=== PATIENT | female | born 1980 | race Caucasian/White ===

== ENCOUNTER 2017-12-11 15:59 | Emergency (ER) | payer MEDICAID ==
--- NOTE | 2017-12-11 16:23 | EDM.PDOC ---
ED HPI GENERAL MEDICAL PROBLEM - General Chief Complaint: ENT Problem Stated Complaint: RIGHT EARACHE Time Seen by Provider: 12/11/17 16:19 Source of Information: Reports: Patient History Limitations: Reports: No Limitations - History of Present Illness Onset: Sudden Duration: Day(s): (2) Quality: Reports: Stabbing Severity: Severe Improves with: Reports: None Worsens with: Reports: None Right Ear Pain Score (Numeric/FACES): 10 - Related Data Allergies Allergy/AdvReac Type Severity Reaction Status Date / Time No Known Allergies Allergy Verified 12/11/17 16:14 Home Meds: Home Meds Amoxicillin/Potassium Clav [Augmentin 875-125 Tablet] 1 each PO BID #14 tablet 12/11/17 [Rx] Hydrocort/Neomycin/Polymyxin B [Eqdeexim-Kpemqnkdj-IG Otic Susp] 10 ml .XX Q6HRRT #1 bottle 12/11/17 [Rx] Past Medical History - Past Health History Medical/Surgical History: Denies Medical/Surgical History - Infectious Disease History Infectious Disease History: Reports: Chicken Pox Social & Family History - Family History Family Medical History: Noncontributory - Tobacco Use Smoking Status *Q: Current Every Day Smoker Years of Tobacco use: 7 Packs/Tins Daily: 0.5 - Recreational Drug Use Recreational Drug Use: No ED ROS ENT - Review of Systems Review Of Systems: ROS reveals no pertinent complaints other than HPI. ED EXAM, ENT - Physical Exam Exam: See Below (see dictation) Text/Narrative:: HISTORY AND PHYSICAL: []36-year-old presenting with right ear pain for the last 2 days History of Present Illness: []Denies cough cold fever chest pain to the right ear Review of Systems: As per history of present illness and below otherwise all systems reviewed and negative. Past medical history: As per history of present illness and as reviewed below otherwise noncontributory. Surgical history: As per history of present illness and as reviewed below otherwise noncontributory. Social history: No reported history of drug or alcohol abuse. Family history: As per history of present illness and as reviewed below otherwise noncontributory. Physical exam: Alert and oriented female who is crying due to pain. She speaking in full sentences without any shortness of breath HEENT: Atraumatic, normocehpalic, pupils reactive, negative for conjunctival pallor or scleral icterus, mucous membranes moist, throat red, neck supple, nontender, trachea midline. Right tympanic membrane is erythematous that is white and red in color bubbly looking. Quite wet. Lungs: Clear to auscultation, breath sounds equal bilaterally, chest non tender. Heart: S1S2, regular, negative for clicks, rubs, or JVD. Abdomen: Soft, nondistended, nontender. Negative for masses or hepatossplenmegaly. Negative for costovertebral tenderness. Pelvis: Stable nontender. Genitourinary: Deferred. Rectal: Deferred Extremities: Atraumatic, negative for cords or calf pain. Neurovascular unremarkable. Neuro: Awake, alert, oriented. Cranial nerves II through XII unremarkable. Cerebellum unremarkable. Motor and sensory unremarkable throughout. Exam nonfocal. Diagnostics: [] Therapeutics: [] Impression: [Right otitis media] Plan: []Discharged to home Cortisporin Otic drops Augmentin Definitive disposition and diagnosis as appropriate pending reevaluation and review of above. Course - Vital Signs Last Recorded V/S: Last Vital Signs Temp 36.4 C 12/11/17 16:11 Pulse 111 H 12/11/17 16:11 Resp 18 12/11/17 16:11 BP 145/80 H 12/11/17 16:11 Pulse Ox 94 L 12/11/17 16:11 Departure - Departure Time of Disposition: 16:21 Disposition: Home, Self-Care 01 Condition: Good Clinical Impression: Otitis media Qualifiers: Otitis media type: unspecified Chronicity: acute Qualified Code(s): H66.90 - Otitis media, unspecified, unspecified ear - Discharge Information Prescriptions: Amoxicillin/Potassium Clav [Augmentin 875-125 Tablet] 1 each PO BID #14 tablet Hydrocort/Neomycin/Polymyxin B [Vppnbojj-Mvkonzppd-XI Otic Susp] 10 ml .XX Q6HRRT #1 bottle Referrals: PCP,None [Primary Care Provider] -
== END 2017-12-11 16:35 | disposition home or self-care (01) ==
LOC: MW.ED 15:59
DX: H66.91 Otitis media, unspecified, right ear (principal); F17.210 Nicotine dependence, cigarettes, uncomplicated
CPT/HCPCS: 99282

== ENCOUNTER 2018-03-05 17:48 | Emergency (ER) | payer MEDICAID ==
[2018-03-05] MEDS ORDERED: Carbamide Peroxide 6.5% Otic Soln 15 ML Bottle EARRT ONE (18:37)
--- NOTE | 2018-03-05 18:45 | EDM.PDOC ---
ED HPI GENERAL MEDICAL PROBLEM - General Chief Complaint: ENT Problem Stated Complaint: PAIN RT EAR Time Seen by Provider: 03/05/18 18:21 Source of Information: Reports: Patient History Limitations: Reports: No Limitations - History of Present Illness INITIAL COMMENTS - FREE TEXT/NARRATIVE: HISTORY AND PHYSICAL: History of present illness: Patient is a 37 year old female who presents to the emergency room today with complaints of pain and fullness to the right ear. She was seen in our emergency room approximately one month ago and given antibiotics for an ear infection. She states since that time she has had discomfort intermittently and "feels like something in there". Any fever, chills, chest pain, shortness of breath or cough. Denies any abdominal pain, nausea, vomiting, diarrhea or constipation. Review of systems: As per history of present illness and below otherwise all systems reviewed and negative. Past medical history: As per history of present illness and as reviewed below otherwise noncontributory. Surgical history: As per history of present illness and as reviewed below otherwise noncontributory. Social history: No reported history of drug or alcohol abuse. Family history: As per history of present illness and as reviewed below otherwise noncontributory. Physical exam: General: Well developed and well-nourished 37 year old female. Alert and oriented. Nontoxic appearing and in no acute distress. HEENT: Atraumatic, normocephalic, pupils equal and reactive bilaterally, negative for conjunctival pallor or scleral icterus, mucous membranes moist, throat clear, neck supple, nontender, trachea midline. Unable to visualize the right tympanic membrane due to cerumen, left TM is normal. No bulging. No drooling or trismus noted. No meningeal signs Lungs: Clear to auscultation, breath sounds equal bilaterally, chest nontender. Heart: S1S2, regular rate and rhythm without overt murmur Abdomen: Soft, nondistended, nontender. Negative for masses. Negative for costovertebral tenderness. Pelvis: Stable nontender. Genitourinary: Deferred. Rectal: Deferred. Skin: Intact, warm, dry. No lesions or rashes noted. Extremities: Atraumatic, moves all without pain or difficulty. Neurovascular unremarkable. Neuro: Awake, alert, oriented. Cranial nerves II through XII unremarkable. Cerebellum unremarkable. Motor and sensory unremarkable throughout. Exam nonfocal. Notes: Able to visualize the right and panic membrane due to cerumen impaction. Debrox otic solution and ear irrigation was ordered. Debrox was applied by nursing staff. They let this medication to sit for approximately 10-15 minutes. Upon returning to the room nursing staff states that the patient left AMA. Attempt to locate this patient, unsuccessful. Diagnostics: [] Therapeutics: Debrox, ear irrigation Impression: Cerumen impaction, right Plan: Left prior to being discharged Definitive disposition and diagnosis as appropriate pending reevaluation and review of above. Duration: Week(s): Location: Reports: Head Right Ear Pain Score (Numeric/FACES): 6 - Related Data Allergies Allergy/AdvReac Type Severity Reaction Status Date / Time No Known Allergies Allergy Verified 03/05/18 18:11 Home Meds: Home Meds . [No Known Home Meds] 03/05/18 [History] Past Medical History - Past Health History Medical/Surgical History: Denies Medical/Surgical History - Infectious Disease History Infectious Disease History: Reports: Chicken Pox Social & Family History - Family History Family Medical History: Noncontributory - Tobacco Use Smoking Status *Q: Current Every Day Smoker Years of Tobacco use: 12 Packs/Tins Daily: 0.5 - Caffeine Use Caffeine Use: Reports: Other - Recreational Drug Use Recreational Drug Use: No ED ROS ENT - Review of Systems Review Of Systems: ROS reveals no pertinent complaints other than HPI. ED EXAM, ENT - Physical Exam Exam: See Below (See dictation) Course - Vital Signs Last Recorded V/S: Last Vital Signs Temp 97.6 F 03/05/18 18:12 Pulse 104 H 03/05/18 18:12 Resp 18 03/05/18 18:12 BP 119/68 03/05/18 18:12 Pulse Ox 94 L 03/05/18 18:12 - Orders/Labs/Meds Orders: Active Orders 24 hr Category Date Time Status Communication Order [RC] STAT Care 03/05/18 18:37 Active Meds: Medications Discontinued Medications Generic Name Dose Route Start Last Admin Trade Name Freq PRN Reason Stop Dose Admin Carbamide Perox/Anhydrous Glycerin 1 ml 03/05/18 18:37 03/05/18 19:22 Debrox 6.5% Otic Soln EARRT 03/05/18 18:38 2 drop ONETIME ONE Administration Departure - Departure Time of Disposition: 19:49 Disposition: Against Medical Advice 07 Clinical Impression: Impacted cerumen of right ear - Discharge Information Referrals: PCP,None [Primary Care Provider] - Forms: ED Department Discharge - My Orders Last 24 Hours: My Active Orders 03/05/18 18:37 Communication Order [RC] STAT - Assessment/Plan Last 24 Hours: My Active Orders 03/05/18 18:37 Communication Order [RC] STAT
== END 2018-03-05 19:48 | disposition left against medical advice (07) ==
LOC: MW.ED 17:48
DX: H61.21 Impacted cerumen, right ear (principal); F17.210 Nicotine dependence, cigarettes, uncomplicated
CPT/HCPCS: 99282; A9270

== ENCOUNTER 2018-03-26 19:10 | Emergency (ER) | payer MEDICAID ==
--- NOTE | 2018-03-26 19:31 | EDM.PDOC ---
ED HPI GENERAL MEDICAL PROBLEM - General Chief Complaint: Chest Pain Stated Complaint: PT FELL IN BATH TUB AND HURT LT SIDE OF BODY Time Seen by Provider: 03/26/18 19:29 Source of Information: Reports: Patient - History of Present Illness INITIAL COMMENTS - FREE TEXT/NARRATIVE: HISTORY AND PHYSICAL: History of present illness: [Patient fell in the bathtub last night complains of 6 out of 10 nonradiating left rib pain lower rib margins denies fever nausea vomiting chills sweats no shortness of breath headache dizziness or palpitation no bowel or urine symptoms no actual chest pain no head injury or loss of consciousness per patient ] Review of systems: As per history of present illness and below otherwise all systems reviewed and negative. Past medical history: As per history of present illness and as reviewed below otherwise noncontributory. Surgical history: As per history of present illness and as reviewed below otherwise noncontributory. Social history: No reported history of drug or alcohol abuse. Family history: As per history of present illness and as reviewed below otherwise noncontributory. Physical exam: HEENT: Atraumatic, normocephalic, pupils reactive, negative for conjunctival pallor or scleral icterus, mucous membranes moist, throat clear, neck supple, nontender, trachea midline. Lungs: Clear to auscultation, breath sounds equal bilaterally, chest nontender on right tender on the lower rib margins on the left. Heart: S1S2, regular, negative for clicks, rubs, or JVD. Abdomen: Soft, nondistended, nontender. Negative for masses or hepatosplenomegaly. Negative for costovertebral tenderness. Pelvis: Stable nontender. Genitourinary: Deferred. Rectal: Deferred. Extremities: Atraumatic, negative for cords or calf pain. Neurovascular unremarkable. Neuro: Awake, alert, oriented. Cranial nerves II through XII unremarkable. Cerebellum unremarkable. Motor and sensory unremarkable throughout. Exam nonfocal. Diagnostics: [Two-view Left ribs with chest 1 view] Patient refused hCG Therapeutics: []Union 5 mg by mouth now and #30 Patient was advised to be admitted for observation she refusesDeciding to leave AGAINST MEDICAL ADVICE all risks and benefits discussed patient was discussed with Dr. Jay whom also recommended observation Impression: [Left rib fracture small apical pneumothorax Definitive disposition and diagnosis as appropriate pending reevaluation and review of above. left lower rib Pain Score (Numeric/FACES): 10 - Related Data Allergies Allergy/AdvReac Type Severity Reaction Status Date / Time No Known Allergies Allergy Verified 03/26/18 19:26 Home Meds: Home Meds . [No Known Home Meds] 03/05/18 [History] Past Medical History - Past Health History Medical/Surgical History: Denies Medical/Surgical History - Infectious Disease History Infectious Disease History: Reports: Chicken Pox Social & Family History - Family History Family Medical History: Noncontributory - Tobacco Use Smoking Status *Q: Current Every Day Smoker Years of Tobacco use: 6 Packs/Tins Daily: 1 - Caffeine Use Caffeine Use: Reports: Other - Recreational Drug Use Recreational Drug Use: No ED ROS GENERAL - Review of Systems Review Of Systems: ROS reveals no pertinent complaints other than HPI. ED EXAM, GENERAL - Physical Exam Exam: See Below Course - Vital Signs Last Recorded V/S: Last Vital Signs Temp 98.2 F 03/26/18 19:10 Pulse 99 03/26/18 19:10 Resp 18 03/26/18 19:10 BP 149/76 H 03/26/18 19:10 Pulse Ox 97 03/26/18 19:10 - Orders/Labs/Meds Orders: Active Orders 24 hr Category Date Time Status Ribs 2V w Chest Lt [CR] Stat Exams 03/26/18 19:29 Taken Meds: Medications Discontinued Medications Generic Name Dose Route Start Last Admin Trade Name Amarilys PRN Reason Stop Dose Admin Hydrocodone Bitart/Acetaminophen 1 tab 03/26/18 20:34 03/26/18 20:38 Union 325-5 Mg PO 03/26/18 20:35 1 tab ONETIME ONE Administration Departure - Departure Time of Disposition: 20:50 Disposition: Against Medical Advice 07 Condition: Fair Clinical Impression: Rib fractures, Pneumothorax on left - Discharge Information Referrals: PCP,None [Primary Care Provider] - Forms: ED Department Discharge Additional Instructions: Strongly advised to return if symptoms persist or worsen or shortness of breath should this develop Medication as prescribed Strongly recommend close follow-up within 24 hours with your primary care The following information is given to patients seen in the emergency department who are being discharged to home. This information is to outline your options for follow-up care. We provide all patients seen in our emergency department with a follow-up referral. The need for follow-up, as well as the timing and circumstances, are variable depending upon the specifics of your emergency department visit. If you don't have a primary care physician on staff, we will provide you with a referral. We always advise you to contact your personal physician following an emergency department visit to inform them of the circumstance of the visit and for follow-up with them and/or the need for any referrals to a consulting specialist. The emergency department will also refer you to a specialist when appropriate. This referral assures that you have the opportunity for follow-up care with a specialist. All of these measure are taken in an effort to provide you with optimal care, which includes your follow-up. Under all circumstances we always encourage you to contact your private physician who remains a resource for coordinating your care. When calling for follow-up care, please make the office aware that this follow-up is from your recent emergency room visit. If for any reason you are refused follow-up, please contact the [facility] emergency department at and asked to speak to the emergency department charge nurse. - My Orders Last 24 Hours: My Active Orders 03/26/18 19:29 Ribs 2V w Chest Lt [CR] Stat - Assessment/Plan Last 24 Hours: My Active Orders 03/26/18 19:29 Ribs 2V w Chest Lt [CR] Stat
[2018-03-26] MEDS ORDERED: Acetaminophen/HYDROcodone 325-5 MG Tab PO ONE (20:34)
--- NOTE | 2018-03-27 17:16 | CR ---
EXAM DATE: 03/26/18 PATIENT'S AGE: 37 Patient: PEPE CAGE Facility: [place], [place] Site . Site : 1980 Study: XRay Chest Left [id number] ribs/cxr-03/26/2018 7:48:00 PM Ordering Physician: Doctor Up Final Report: INDICATION: Rib pain. Fall. TECHNIQUE: PA chest and 3 left rib views. COMPARISON: None. FINDINGS: The cardiac, mediastinal and hilar contours are normal. Normal pulmonary vasculature. Lungs are grossly clear. No pleural fluid. There is a tiny left apical pneumothorax, measuring approximately 7 mm. There appear to be nondisplaced left 3rd and 4th posterolateral rib fractures. No other definite rib fractures are seen although the lower left ribs are not well visualized. IMPRESSION: Tiny left apical pneumothorax with nondisplaced left 3rd and 4th rib fractures. Results were called to Dr. Waterman at 8:40 p.m. on 03/26/2018. Dictated by Tyrone Crowell MD @ 03/26/2018 8:43:18 PM Dictated by: Tyrone Crowell MD @ 03/26/2018 20:43:49 (Electronic Signature) Report Signed by Proxy. [facility] MED[facility] CENTERInocente
== END 2018-03-26 20:55 | disposition left against medical advice (07) ==
LOC: MW.ED 19:10
DX: S22.42XA Multiple fractures of ribs, left side, initial encounter for closed fracture (principal); J93.9 Pneumothorax, unspecified; F17.210 Nicotine dependence, cigarettes, uncomplicated; W18.2XXA Fall in (into) shower or empty bathtub, initial encounter
CPT/HCPCS: 71101; 99283; A9270

== ENCOUNTER 2018-11-23 06:26 | Inpatient (IN) | payer MEDICAID ==
[2018-11-23] MEDS ORDERED: Carboprost Tromethamine 250 MCG/1 ML Amp IM PRN (06:51)
[2018-11-23] MEDS ORDERED: Methylergonovine 0.2 MG/1 ML Amp IM PRN (06:51)
[2018-11-23] MEDS ORDERED: Sodium Chloride 0.9% 10 ML Syringe FLUSH PRN (06:51)
[2018-11-23] MEDS ORDERED: Water For Irrigation,Sterile 1,000 ML Container IRR PRN (06:51)
[2018-11-23] MEDS ORDERED: Tranexamic Acid 1,000 MG in Sodium Chloride 0.9% 100 ML IV PRN (06:51)
[2018-11-23] MEDS ORDERED: Misoprostol 200 MCG Tab PO PRN (06:51)
[2018-11-23] MEDS ORDERED: Lidocaine 1% 50 ML MDV INJECT PRN (06:51)
[2018-11-23] MEDS ORDERED: Sodium Chloride 0.9% 2.5 ML Syringe FLUSH PRN (06:51)
[2018-11-23] MEDS ORDERED: Nalbuphine 10 MG/1 ML Vial IVPUSH PRN (06:51)
[2018-11-23] MEDS ORDERED: Butorphanol 1 MG/ML SDV IVPUSH PRN (06:51)
[2018-11-23] MEDS ORDERED: Lactated Ringers 1,000 ML IV SCH (07:00)
[2018-11-23] MEDS ORDERED: Oxytocin/0.9 % Sodium Chloride 30 UNIT/500 ML BAG IV SCH (07:00)
[2018-11-23] MEDS ORDERED: oxyCODONE 5 MG Tab PO PRN (07:56)
[2018-11-23] MEDS ORDERED: Lanolin 100% Cream 7 GM Tube TOP PRN (07:56)
[2018-11-23] MEDS ORDERED: Ibuprofen 400 MG Tab PO PRN (07:56)
[2018-11-23] MEDS ORDERED: Benzocaine/Menthol 20%-0.5% Spray 78 GM Cannister TOP PRN (07:56)
[2018-11-23] MEDS ORDERED: Docusate Sodium 100 MG Cap PO PRN (07:56)
[2018-11-23] MEDS ORDERED: Bisacodyl 10 MG Supp RECTAL PRN (07:56)
[2018-11-23] MEDS ORDERED: Acetaminophen 500 MG Tab PO PRN ×2 (07:56)
[2018-11-23] MEDS ORDERED: Witch Hazel Medicated Pads 40/Jar TOP PRN (07:56)
--- NOTE | 2018-11-23 08:10 | PCM.DEL ---
L & D Note - General Info Date of Service: 11/23/18 - Delivery Note Labor: Spontaneous Delivery Method: Spontaneous Vaginal Delivery-Single Infant Delivery Mode: Spontaneous Presentation: Vertex Nuchal Cord: None Prep: Other Anesthesia Type: Local Amniotic Fluid Description: Clear Episiotomy Type: None Laceration: 2nd Degree Suture type: Vicryl Suture size: 2-0 Placenta: Intact, Spontaneous Cord: 3 Vessels Estimated Blood Loss: 100 Resuscitation Needed: No Score 1 min: 8 Score 5 min: 9 - General Info Date of Service: 11/23/18 - Patient Data Weight - Most Recent: 140 lb Lab Results Last 24 Hours: Laboratory Results - last 24 hr 11/23/18 11/23/18 Range/Units 06:45 07:12 WBC 11.18 H (4.0-11.0) K/uL RBC 5.15 (4.30-5.90) M/uL Hgb 13.1 (12.0-16.0) g/dL Hct 39.9 (36.0-46.0) % MCV 77.5 L (80.0-98.0) fL MCH 25.4 L (27.0-32.0) pg MCHC 32.8 (31.0-37.0) g/dL RDW Std Deviation 40.2 (28.0-62.0) fl RDW Coeff of Rodriguez 14 (11.0-15.0) % Plt Count 240 (150-400) K/uL MPV 10.10 (7.40-12.00) fL Nucleated RBC % 0.0 /100WBC Nucleated RBCs # 0 K/uL Membrane Rupture POSITIVE Med Orders - Current: Current Medications Acetaminophen (Tylenol Extra Strength) 500 mg PO Q4H PRN PRN Reason: Pain Acetaminophen (Tylenol Extra Strength) 1,000 mg PO Q4H PRN PRN Reason: Pain Benzocaine/Menthol (Dermoplast Pain Relief 20%-0.5% [place]) 78 gm TOP ASDIRECTED PRN PRN Reason: Perineal Comfort Measure Bisacodyl (Dulcolax) 10 mg RECTAL ONETIME PRN PRN Reason: Constipation Docusate Sodium (Colace) 100 mg PO BID PRN PRN Reason: Constipation Emollient Ointment (Lansinoh Hpa) 0 gm TOP ASDIRECTED PRN PRN Reason: Sore Nipples Ibuprofen (Motrin) 400 mg PO Q4H PRN PRN Reason: Pain Ibuprofen (Motrin) 800 mg PO Q6H PRN PRN Reason: Pain Oxycodone HCl (Oxycodone) 5 mg PO Q2H PRN PRN Reason: Pain Witch Talia (Tucks) 1 pad TOP ASDIRECTED PRN PRN Reason: comfort care Discontinued Medications Butorphanol Tartrate (Stadol) 1 mg IVPUSH Q1H PRN PRN Reason: Pain Carboprost Tromethamine (Hemabate Ds) 250 mcg IM ASDIRECTED PRN PRN Reason: Post Hemorrhage Lactated Ringer's (Ringers, Lactated) 1,000 mls @ 150 mls/hr IV ASDIRECTED JUSTICE Oxytocin/Sodium Chloride (Oxytocin 30 Unit/500 Ml-Ns) 30 unit in 500 mls @ 999 mls/hr IV TITRATE JUSTICE Tranexamic Acid 1,000 mg/ (Sodium Chloride) 110 mls @ 660 mls/hr IV ONETIME PRN PRN Reason: Bleeding Lidocaine HCl (Xylocaine 1%) 50 ml INJECT ONETIME PRN PRN Reason: Laceration repair Methylergonovine Maleate (Methergine) 0.2 mg IM ASDIRECTED PRN PRN Reason: Post Hemorrhage Misoprostol (Cytotec) 200 mcg PO ONETIME PRN PRN Reason: Post Hemorrhage Nalbuphine HCl (Nubain) 10 mg IVPUSH Q1H PRN PRN Reason: Pain (severe 7-10) Sodium Chloride (Saline Flush) 10 ml FLUSH ASDIRECTED PRN PRN Reason: Keep Vein Open Sodium Chloride (Saline Flush) 2.5 ml FLUSH ASDIRECTED PRN PRN Reason: Keep Vein Open Sterile Water (Sterile Water For Irrigation) 1,000 ml IRR ASDIRECTED PRN PRN Reason: delivery - Problem List & Annotations (1) Vaginal delivery SNOMED Code(s): 437625811 Code(s): O80 - ENCOUNTER FOR FULL-TERM UNCOMPLICATED DELIVERY Status: Acute Current Visit: Yes - Problem List Review Problem List Initiated/Reviewed/Updated: Yes - My Orders Last 24 Hours: My Active Orders 11/23/18 06:51 Heart Tones [RC] CONTINUOUS Non Stress Test [RC] PER UNIT ROUTINE May Shower [RC] ASDIRECTED Notify Provider [RC] PRN Up ad Babita [RC] ASDIRECTED Vaginal Exam [RC] PRN Vital Signs [RC] PER UNIT ROUTINE 11/23/18 07:12 TYPE AND SCREEN [BBK] Routine 11/23/18 07:27 BLOOD GAS ARTERIAL UMBILICAL [BG] Routine BLOOD GAS VENOUS UMBILICAL [BG] Routine 11/23/18 07:56 Acetaminophen [Tylenol Extra Strength] 1,000 mg PO Q4H PRN Acetaminophen [Tylenol Extra Strength] 500 mg PO Q4H PRN Benzocaine/Menthol [Dermoplast Pain Relief 20%-0.5% [place]] 78 gm TOP ASDIRECTED PRN Bisacodyl [Dulcolax] 10 mg RECTAL ONETIME PRN Docusate Sodium [Colace] 100 mg PO BID PRN Ibuprofen [Motrin] 400 mg PO Q4H PRN Ibuprofen [Motrin] 800 mg PO Q6H PRN Lanolin [Lansinoh HPA] See Dose Instructions TOP ASDIRECTED PRN Witch Talia [Tucks] 1 pad TOP ASDIRECTED PRN oxyCODONE 5 mg PO Q2H PRN Breast Pump [WOMSER] Per Unit Routine Resuscitation Status Routine 11/23/18 07:57 Patient Status [ADT] Routine May Shower [RC] ASDIRECTED Up ad Babita [RC] ASDIRECTED Vital Signs [RC] PER UNIT ROUTINE Assess Lochia [WOMSER] Per Unit Routine Assess Uterine Involution [WOMSER] Per Unit Routine Peripheral IV Discontinue [OM.PC] Routine 11/23/18 07:58 Perineal Care [OM.PC] Per Unit Routine 11/23/18 Lunch Regular Diet [DIET] 11/24/18 05:11 HEMOGLOBIN/HEMATOCRIT,HH [HEME] Timed
[2018-11-23] MEDS: Ibuprofen 800 MG Tab PO PRN ×3 (11:13→23:02)
--- NOTE | 2018-11-23 11:46 | OR ---
SURGEON: Oly Olivia MD DATE OF PROCEDURE: 11/23/2018 PREOPERATIVE DIAGNOSES: 1. Term at 38 weeks and 2 days gestation. 2. Spontaneous labor POSTOPERATIVE DIAGNOSES: 1. Term at 38 weeks and 2 days gestation. 2. Spontaneous labor. 3. Delivered. 4. Small gestational age infant PROCEDURE: Spontaneous vaginal delivery with repair of perineal laceration. ANESTHESIA: Local. ESTIMATED BLOOD LOSS: 150 mL. COMPLICATIONS: None. DISPOSITION: Mother and baby stable in Labor and Delivery room. FINDINGS: Female , weight 2410 g, scores of 8 and 9 at 1 and 5 minutes respectively. Grossly normal placenta with 3-vessel cord. Second-degree perineal laceration. BRIEF HISTORY AND DESCRIPTION OF PROCEDURE: Shivani is a 37-year-old G2, P0-1-0-1 who presented this morning at 38 weeks and 2 days gestation with a history of contractions, which started about 4 a.m., then followed by spontaneous rupture of clear fluid at about 5:24am. She was confirmed to be grossly ruptured on admission and was 5 cm, 90% effaced, station -2. GBS negative. Her care was complicated by advanced maternal age with a positive screen QUAD screen but negative NIPT test. She declined amniocentesis after consult with the perinatologist. She is also known to have Chronic Hepatitis C, with low viral load and normal liver function test during the . Her HIV screen has remained non-reactive. She was admitted and progressed rather fast, becoming fully dialed within 30 minutes of presentation. She was set up for delivery in modified dorsal lithotomy position and commenced active pushing. She proceeded to have a spontaneous vaginal delivery of a live female infant in direct occipital anterior position. No nuchal cord and clear fluid at delivery. Anterior and posterior shoulders and the rest of the baby were delivered without difficulty. The baby was vigorous and cried spontaneously at and was delivered onto the maternal abdomen in the presence of the attendant nursery nurse who was evaluating her. Delayed cord clamping was observed and the cord was then cut. Cord blood and gas samples were obtained. With delivery of the infant, oxytocin was commenced for active management of third stage of labor. Placenta was delivered spontaneously by controlled cord traction. Examination of the perineum, vaginal seo, and cervix revealed a second-degree perineal laceration. This was then infiltrated with 1% lidocaine without epinephrine. After adequate anesthesia was confirmed, it was repaired with 2-0 Vicryl in 3 layers and was hemostatic post repair. The patient tolerated the procedure well. Uterine massage was performed. The uterus was found to be well contracted below the umbilicus. Sponge, instrument, and needle counts were correct at the end of the delivery. ADUMVIV / MODL /[id number] MTDD
--- NOTE | 2018-11-24 10:08 | PCM.PNPP ---
- General Info Date of Service: 11/24/18 Functional Status: Reports: Pain Controlled, Tolerating Diet, Ambulating, Urinating - Review of Systems General: Denies: Fever, Malaise, Chills HEENT: Denies: Headaches Pulmonary: Denies: Shortness of Breath, Pleuritic Chest Pain, Cough Cardiovascular: Denies: Chest Pain, Palpitations Gastrointestinal: Denies: Abdominal Pain Genitourinary: Denies: Dysuria, Incontinence, Retention Psychiatric: Denies: Confusion, Depression, Mood Lability, Anxiety - General Info Date of Service: 11/24/18 - Patient Data Vital Signs - Most Recent: Last Vital Signs Temp 36.8 C 11/24/18 08:30 Pulse 73 11/24/18 08:30 Resp 17 11/24/18 08:30 BP 142/86 H 11/24/18 08:30 Pulse Ox 94 L 11/24/18 08:30 Weight - Most Recent: 139 lb Lab Results - Last 24 Hours: Laboratory Results - last 24 hr 11/23/18 11/24/18 Range/Units 07:12 05:57 Hgb 11.7 L (12.0-16.0) g/dL Hct 35.0 L (36.0-46.0) % Antibody Screen POSITIVE Med Orders - Current: Current Medications Acetaminophen (Tylenol Extra Strength) 500 mg PO Q4H PRN PRN Reason: Pain Acetaminophen (Tylenol Extra Strength) 1,000 mg PO Q4H PRN PRN Reason: Pain Last Admin: 11/23/18 16:35 Dose: 1,000 mg Benzocaine/Menthol (Dermoplast Pain Relief 20%-0.5% [place]) 78 gm TOP ASDIRECTED PRN PRN Reason: Perineal Comfort Measure Bisacodyl (Dulcolax) 10 mg RECTAL ONETIME PRN PRN Reason: Constipation Docusate Sodium (Colace) 100 mg PO BID PRN PRN Reason: Constipation Emollient Ointment (Lansinoh Hpa) 0 gm TOP ASDIRECTED PRN PRN Reason: Sore Nipples Ibuprofen (Motrin) 400 mg PO Q4H PRN PRN Reason: Pain Ibuprofen (Motrin) 800 mg PO Q6H PRN PRN Reason: Pain Last Admin: 11/23/18 23:02 Dose: 800 mg Oxycodone HCl (Oxycodone) 5 mg PO Q2H PRN PRN Reason: Pain Witch Talia (Tucks) 1 pad TOP ASDIRECTED PRN PRN Reason: comfort care Discontinued Medications Butorphanol Tartrate (Stadol) 1 mg IVPUSH Q1H PRN PRN Reason: Pain Carboprost Tromethamine (Hemabate Ds) 250 mcg IM ASDIRECTED PRN PRN Reason: Post Hemorrhage Lactated Ringer's (Ringers, Lactated) 1,000 mls @ 150 mls/hr IV ASDIRECTED [facility] Oxytocin/Sodium Chloride (Oxytocin 30 Unit/500 Ml-Ns) 30 unit in 500 mls @ 999 mls/hr IV TITRATE [facility] Last Admin: 11/23/18 07:28 Dose: 500 mls/hr Tranexamic Acid 1,000 mg/ (Sodium Chloride) 110 mls @ 660 mls/hr IV ONETIME PRN PRN Reason: Bleeding Lidocaine HCl (Xylocaine 1%) 50 ml INJECT ONETIME PRN PRN Reason: Laceration repair Last Admin: 11/23/18 07:30 Dose: 50 ml Methylergonovine Maleate (Methergine) 0.2 mg IM ASDIRECTED PRN PRN Reason: Post Hemorrhage Misoprostol (Cytotec) 200 mcg PO ONETIME PRN PRN Reason: Post Hemorrhage Nalbuphine HCl (Nubain) 10 mg IVPUSH Q1H PRN PRN Reason: Pain (severe 7-10) Sodium Chloride (Saline Flush) 10 ml FLUSH ASDIRECTED PRN PRN Reason: Keep Vein Open Sodium Chloride (Saline Flush) 2.5 ml FLUSH ASDIRECTED PRN PRN Reason: Keep Vein Open Sterile Water (Sterile Water For Irrigation) 1,000 ml IRR ASDIRECTED PRN PRN Reason: delivery - Interaction Infant Disposition, : in Room with Family Interaction: Holding Infant Feeding: Bottle Fed Support Person: Significant Other - Recovery Exam Fundal Tone: Firm Fundal Level: 1 Fingerbreadths Below Umbilicus Fundal Placement: Midline Lochia Amount: Scant Lochia Color: Rubra/Red Perineum Description: Other (see below) Other Perinuem Description: 1st degree laceration Episiotomy/Laceration: Approximated Bladder Status: Voiding Urinary Elimination: Voided - Exam General: Alert, Oriented HEENT: Pupils Equal Lungs: Clear to Auscultation, Normal Respiratory Effort Cardiovascular: Regular Rate, Regular Rhythm GI/Abdominal Exam: Normal Bowel Sounds, Non-Tender Extremities: Non-Tender, Pedal Edema Skin: Warm Psy/Mental Status: Alert, Normal Affect, Normal Mood - Problem List & Annotations (1) Vaginal delivery SNOMED Code(s): 532513135 Code(s): O80 - ENCOUNTER FOR FULL-TERM UNCOMPLICATED DELIVERY Status: Acute Current Visit: Yes - Problem List Review Problem List Initiated/Reviewed/Updated: Yes - My Orders Last 24 Hours: My Active Orders 11/23/18 Lunch Regular Diet [DIET] - Assessment Assessment:: PPD#1 s/p , stable and afebrile Doing well and clinically stable for discharge today - Plan Plan:: Discharge instructions reviewed Nothing in the vagina for 6 weeks Continue PNV Bleeding and infection precautions reviewed depression S/S reviewed with patient, encouraged to call if any concerns Follow up in 6 weeks at [facility]
== END 2018-11-24 12:30 | disposition home or self-care (01) | DRG 807 ==
LOC: MW.OBCHECK 06:26 → MW.OB 06:27 → MW.OBCHECK 06:45 → OBSVTOIN 07:26 → MW.OB 16:22
PROVIDERS: ADMIT Obstetrics & Gynecology; ATTEND Obstetrics & Gynecology
PROC: 10E0XZZ Delivery of Products of Conception, External Approach (ICD-10-PCS; principal; 2018-11-23)
PROC: 0KQM0ZZ Repair Perineum Muscle, Open Approach (ICD-10-PCS; 2018-11-23)
PROC: 6A550ZT Pheresis of Cord Blood Stem Cells, Single (ICD-10-PCS; 2018-11-23)
DX: O70.1 Second degree perineal laceration during delivery (principal); Z37.0 Single live birth; O36.5930 Maternal care for other known or suspected poor fetal growth, third trimester, not applicable or unspecified; Z3A.38 38 weeks gestation of pregnancy
CPT/HCPCS: 36415; 59025; 59409; 82803; 84112; 85014; 85018; 85027; 86850; 86870; 86900; 86901; A9270-GY; J2590

== ENCOUNTER 2021-01-06 14:43 | Observation (INO) | payer OTHER ==
[2021-01-06] MEDS ORDERED: Methylergonovine 0.2 MG/1 ML Amp IM PRN (15:35)
[2021-01-06] MEDS ORDERED: Carboprost Tromethamine 250 MCG/1 ML Amp IM PRN (15:35)
[2021-01-06] MEDS ORDERED: Tranexamic Acid 1,000 MG in Sodium Chloride 0.9% 100 ML IV PRN (15:35)
[2021-01-06] MEDS ORDERED: Sodium Chloride 0.9% 10 ML Syringe FLUSH PRN (15:35)
[2021-01-06] MEDS ORDERED: Nalbuphine 10 MG/1 ML Vial IVPUSH PRN (15:35)
[2021-01-06] MEDS ORDERED: Sodium Chloride 0.9% 10 ML SDV IV PRN (15:35)
[2021-01-06] MEDS ORDERED: Sodium Chloride 0.9% 2.5 ML Syringe FLUSH PRN (15:35)
[2021-01-06] MEDS ORDERED: Misoprostol 200 MCG Tab PO PRN (15:35)
[2021-01-06] MEDS ORDERED: Water For Irrigation,Sterile 1,000 ML Container IRR PRN (15:35)
[2021-01-06] MEDS ORDERED: Lidocaine 1% 50 ML MDV INJECT PRN (15:35)
[2021-01-06] MEDS ORDERED: Oxytocin/0.9 % Sodium Chloride 30 UNIT/500 ML BAG IV SCH (15:45)
[2021-01-06] MEDS: Misoprostol 200 MCG Tab VAG SCH ×2 (16:36→20:38)
[2021-01-06] MEDS ORDERED: Acetaminophen 500 MG Tab PO PRN (22:56)
[2021-01-06] MEDS: Butorphanol 1 MG/ML SDV IVPUSH PRN (23:20)
[2021-01-07] MEDS: Misoprostol 200 MCG Tab VAG SCH (00:44)
[2021-01-07] MEDS: Butorphanol 1 MG/ML SDV IVPUSH PRN ×2 (00:53→03:46)
[2021-01-07] MEDS: Lactated Ringers 1,000 ML IV SCH ×2 (04:28→05:29)
[2021-01-07] MEDS ORDERED: fentaNYL 100 MCG/2 ML SDV ONE (04:39)
[2021-01-07] MEDS ORDERED: Ropivacaine HCl/PF 100 ML ONE (04:39)
--- NOTE | 2021-01-07 05:35 | PCM.PREANE ---
Preanesthetic Assessment - Procedure Proposed Procedure: Continuous Labor Epidural - Anesthesia/Transfusion/Family Hx Anesthesia History: Prior Anesthesia Without Reaction Transfusion History: No Prior Transfusion(s) - Review of Systems General: No Symptoms Pulmonary: No Symptoms Cardiovascular: No Symptoms Gastrointestinal: No Symptoms Neurological: No Symptoms Other: Reports: None - Physical Assessment Vital Signs: Last Vital Signs Temp 37.8 C 01/07/21 02:15 Pulse 86 01/07/21 02:15 Resp 16 01/07/21 02:15 BP 119/86 01/07/21 02:15 Pulse Ox Height: 5 ft 2.5 in Weight: 54.431 kg ASA Class: 2 Mental Status: Alert & Oriented x3 Airway Class: Mallampati = 2 Dentition: Reports: Normal Dentition ROM/Head Extension: Full Lungs: Clear to Auscultation, Normal Respiratory Effort Cardiovascular: Regular Rate, Regular Rhythm - Lab Values: Laboratory Last Values WBC 9.25 K/uL (4.0-11.0) 01/06/21 15:00 RBC 4.98 M/uL (4.30-5.90) 01/06/21 15:00 Hgb 15.0 g/dL (12.0-16.0) 01/06/21 15:00 Hct 42.5 % (36.0-46.0) 01/06/21 15:00 MCV 85.3 fL (80.0-98.0) 01/06/21 15:00 MCH 30.1 pg (27.0-32.0) 01/06/21 15:00 MCHC 35.3 g/dL (31.0-37.0) 01/06/21 15:00 RDW Std Deviation 40.1 fl (28.0-62.0) 01/06/21 15:00 RDW Coeff of Rodriguez 13 % (11.0-15.0) 01/06/21 15:00 Plt Count 232 K/uL (150-400) 01/06/21 15:00 MPV 10.50 fL (7.40-12.00) 01/06/21 15:00 Nucleated RBC % 0.0 /100WBC 01/06/21 15:00 Nucleated RBCs # 0 K/uL 01/06/21 15:00 SARS-CoV-2 RNA ([facility]) NEGATIVE (NEGATIVE) 01/06/21 15:10 Blood Type A POSITIVE 01/06/21 15:00 Antibody Screen NEGATIVE 01/06/21 15:00 - Allergies Allergies/Adverse Reactions: Allergies Allergy/AdvReac Type Severity Reaction Status Date / Time No Known Allergies Allergy Verified 03/26/18 19:26 - Anesthesia Plan Free Text/Narrative:: Continuous Labor Epidural - Acknowledgements Anesthesia Type Planned: Epidural Pt an Appropriate Candidate for the Planned Anesthesia: Yes Alternatives and Risks of Anesthesia Discussed w Pt/Guardian: Yes Pt/Guardian Understands and Agrees with Anesthesia Plan: Yes PreAnesthesia Questionnaire - Past Health History Medical/Surgical History: Denies Medical/Surgical History HEENT History: Reports: None Cardiovascular History: Reports: Hypertension, Other (See Below) Other Cardiovascular History: patient denies taking her meds like prescribed. Respiratory History: Reports: None Gastrointestinal History: Reports: None Genitourinary History: Reports: None [employer] History: Reports: : 3 Para: 2 LMP (Approximate): Other OB/BYN History: Current Demise Musculoskeletal History: Reports: Other (See Below) Neurological History: Reports: None Psychiatric History: Reports: None Endocrine/Metabolic History: Reports: None Hematologic History: Reports: None Immunologic History: Reports: None Oncologic (Cancer) History: Reports: None Dermatologic History: Reports: Other (See Below) Other Dermatologic History: neurofibromatosis type 1 - Infectious Disease History Infectious Disease History: Reports: Chicken Pox, Hepatitis C, Human Papilloma Virus (HPV) - Past Surgical History Head Surgeries/Procedures: Reports: None HEENT Surgical History: Reports: None Cardiovascular Surgical History: Reports: None Respiratory Surgical History: Reports: None GI Surgical History: Reports: None Female Surgical History: Reports: None Endocrine Surgical History: Reports: None Neurological Surgical History: Reports: None Musculoskeletal Surgical History: Reports: Other (See Below) Other Musculoskeletal Surgeries/Procedures:: surgery on tip of left middle finger Oncologic Surgical History: Reports: None Dermatological Surgical History: Reports: Skin Graft - SUBSTANCE USE Tobacco Use Status *Q: Current Every Day Tobacco User Tobacco Use Within Last Twelve Months: Cigarettes Second Hand Smoke Exposure: Yes Recreational Drug Use History: No - HOME MEDS Home Medications: Home Meds . [No Known Home Meds] 03/05/18 [History] - CURRENT (IN HOUSE) MEDS Current Meds: Current Medications Acetaminophen (Tylenol Extra Strength) 1,000 mg PO Q6H PRN PRN Reason: Fever Last Admin: 01/06/21 23:18 Dose: 1,000 mg Documented by: Butorphanol Tartrate (Stadol) 1 mg IVPUSH Q1H PRN PRN Reason: Pain Last Admin: 01/07/21 03:46 Dose: 1 mg Documented by: Carboprost Tromethamine (Hemabate Ds) 250 mcg IM ASDIRECTED PRN PRN Reason: Post Hemorrhage Oxytocin/Sodium Chloride (Oxytocin 30 Unit/500 Ml-Ns) 30 unit in 500 mls @ 500 mls/hr IV TITRATE [facility] Tranexamic Acid 1,000 mg/ (Sodium Chloride) 110 mls @ 660 mls/hr IV ONETIME PRN PRN Reason: Bleeding Lactated Ringer's (Ringers, Lactated) 1,000 mls @ 150 mls/hr IV ASDIRECTED [facility] Last Admin: 01/07/21 04:28 Dose: 999 mls/hr Documented by: Lidocaine HCl (Xylocaine 1%) 50 ml INJECT ONETIME PRN PRN Reason: Laceration repair Methylergonovine Maleate (Methergine) 0.2 mg IM ASDIRECTED PRN PRN Reason: Post Hemorrhage Misoprostol (Cytotec) 200 mcg PO ONETIME PRN PRN Reason: Post Hemorrhage Misoprostol (Cytotec) 400 mcg VAG Q4H [facility] Last Admin: 01/07/21 00:44 Dose: 400 mcg Documented by: Nalbuphine HCl (Nubain) 10 mg IVPUSH Q1H PRN PRN Reason: Pain (severe 7-10) Sodium Chloride (Saline Flush) 10 ml FLUSH ASDIRECTED PRN PRN Reason: Keep Vein Open Sodium Chloride (Saline Flush) 2.5 ml FLUSH ASDIRECTED PRN PRN Reason: Keep Vein Open Sodium Chloride (Normal Saline) 10 ml IV ASDIRECTED PRN PRN Reason: IV Use Sterile Water (Sterile Water For Irrigation) 1,000 ml IRR ASDIRECTED PRN PRN Reason: delivery Discontinued Medications Fentanyl (Sublimaze) Confirm Administered Dose 200 mcg .ROUTE .STK-MED ONE Stop: 01/07/21 04:40 Ropivacaine (Naropin 0.2%) Confirm Administered Dose 100 mls @ as directed .ROUTE .STK-MED ONE Stop: 01/07/21 04:40
--- NOTE | 2021-01-07 07:19 | PCM.DEL ---
<Kylah Angela - Last Filed: 01/07/21 07:14> L & D Note - General Info Date of Service: 01/07/21 Mother's Due Date: 04/22/21 - Delivery Note Cervical Ripening Method: Prostaglandin E2 Delivery Outcome: Stillbirth Delivery Method: Spontaneous Vaginal Delivery-Single Presentation: en cull - cephalic Nuchal Cord: None Anesthesia Type: Epidural Amniotic Fluid Description: Clear Episiotomy Type: None Laceration: None Placenta: Intact, Spontaneous Estimated Blood Loss: 50 Resuscitation Needed: No Score 1 min: 0 Score 5 min: 0 Delivery Comments (Free Text/Narrative):: 25 known demise - medical IOL - General Info Date of Service: 01/07/21 Functional Status: Reports: Pain Controlled - Review of Systems General: Reports: No Symptoms HEENT: Reports: No Symptoms Pulmonary: Reports: No Symptoms Cardiovascular: Reports: No Symptoms Gastrointestinal: Reports: No Symptoms Genitourinary: Reports: No Symptoms Musculoskeletal: Reports: No Symptoms Skin: Reports: No Symptoms Neurological: Reports: No Symptoms Psychiatric: Reports: No Symptoms - Patient Data Vitals - Most Recent: Last Vital Signs Temp 100.1 F 01/07/21 02:15 Pulse 86 01/07/21 02:15 Resp 16 01/07/21 02:15 BP 119/86 01/07/21 02:15 Pulse Ox Weight - Most Recent: 54.431 kg Lab Results Last 24 Hours: Laboratory Results - last 24 hr 01/06/21 01/06/21 01/06/21 Range/Units 15:00 15:00 15:10 WBC 9.25 (4.0-11.0) K/uL RBC 4.98 (4.30-5.90) M/uL Hgb 15.0 (12.0-16.0) g/dL Hct 42.5 (36.0-46.0) % MCV 85.3 (80.0-98.0) fL MCH 30.1 (27.0-32.0) pg MCHC 35.3 (31.0-37.0) g/dL RDW Std Deviation 40.1 (28.0-62.0) fl RDW Coeff of Rodriguez 13 (11.0-15.0) % Plt Count 232 (150-400) K/uL MPV 10.50 (7.40-12.00) fL Nucleated RBC % 0.0 /100WBC Nucleated RBCs # 0 K/uL SARS-CoV-2 RNA ([place]) NEGATIVE (NEGATIVE) Blood Type A POSITIVE Antibody Screen NEGATIVE Med Orders - Current: Current Medications Acetaminophen (Tylenol Extra Strength) 1,000 mg PO Q6H PRN PRN Reason: Fever Last Admin: 01/06/21 23:18 Dose: 1,000 mg Documented by: Butorphanol Tartrate (Stadol) 1 mg IVPUSH Q1H PRN PRN Reason: Pain Last Admin: 01/07/21 03:46 Dose: 1 mg Documented by: Carboprost Tromethamine (Hemabate Ds) 250 mcg IM ASDIRECTED PRN PRN Reason: Post Hemorrhage Oxytocin/Sodium Chloride (Oxytocin 30 Unit/500 Ml-Ns) 30 unit in 500 mls @ 500 mls/hr IV TITRATE [facility] Tranexamic Acid 1,000 mg/ (Sodium Chloride) 110 mls @ 660 mls/hr IV ONETIME PRN PRN Reason: Bleeding Lactated Ringer's (Ringers, Lactated) 1,000 mls @ 150 mls/hr IV ASDIRECTED [facility] Last Admin: 01/07/21 05:29 Dose: 150 mls/hr Documented by: Lidocaine HCl (Xylocaine 1%) 50 ml INJECT ONETIME PRN PRN Reason: Laceration repair Methylergonovine Maleate (Methergine) 0.2 mg IM ASDIRECTED PRN PRN Reason: Post Hemorrhage Misoprostol (Cytotec) 200 mcg PO ONETIME PRN PRN Reason: Post Hemorrhage Misoprostol (Cytotec) 400 mcg VAG Q4H [facility] Last Admin: 01/07/21 00:44 Dose: 400 mcg Documented by: Nalbuphine HCl (Nubain) 10 mg IVPUSH Q1H PRN PRN Reason: Pain (severe 7-10) Sodium Chloride (Saline Flush) 10 ml FLUSH ASDIRECTED PRN PRN Reason: Keep Vein Open Sodium Chloride (Saline Flush) 2.5 ml FLUSH ASDIRECTED PRN PRN Reason: Keep Vein Open Sodium Chloride (Normal Saline) 10 ml IV ASDIRECTED PRN PRN Reason: IV Use Sterile Water (Sterile Water For Irrigation) 1,000 ml IRR ASDIRECTED PRN PRN Reason: delivery Discontinued Medications Fentanyl (Sublimaze) Confirm Administered Dose 200 mcg .ROUTE .STK-MED ONE Stop: 01/07/21 04:40 Ropivacaine (Naropin 0.2%) Confirm Administered Dose 100 mls @ as directed .ROUTE .STK-MED ONE Stop: 01/07/21 04:40 - Exam General: Alert, Oriented HEENT: Pupils Equal, Pupils Reactive, EOMI, Mucous Membr. Moist/[place] Neck: Supple GI/Abdominal Exam: Soft, No Organomegaly, No Distention, No Mass (Female) Exam: Vaginal Bleeding Back Exam: Normal Inspection, Full Range of Motion Extremities: Normal Inspection, Normal Range of Motion, Non-Tender, No Pedal Edema, Normal Capillary Refill Skin: Warm, Dry, Intact Wound/Incisions: Healing Well Neurological: No New Focal Deficit Psy/Mental Status: Alert, Normal Affect, Normal Mood - Problem List & Annotations (1) SNOMED Code(s): 890644143 Code(s): O36.4XX0 - MATERNAL CARE FOR INTRAUTERINE , NOT APPLICABLE OR UNSP Status: Acute Current Visit: Yes Onset Date: ~01/07/21 - Problem List Review Problem List Initiated/Reviewed/Updated: Yes - Assessment Assessment:: 40 year old with 25 week known demise. Patient presented to [facility] on 01/04 for antepartum visit and no FHT were detected. She was scheduled for a medical IOL with cytotec. Received 2 doses of cytotec with passage of en cull fetus. Bleeding controlled, uterus firm - Plan Plan:: 1. Stable pp, monitor bleeding, hgb @ noon, appropriate grief care <Alycia Avila - Last Filed: 01/07/21 07:36> - Patient Data Vitals - Most Recent: Last Vital Signs Temp 37.8 C 01/07/21 02:15 Pulse 86 01/07/21 02:15 Resp 16 01/07/21 02:15 BP 119/86 01/07/21 02:15 Pulse Ox Lab Results Last 24 Hours: Laboratory Results - last 24 hr 01/06/21 01/06/21 01/06/21 Range/Units 15:00 15:00 15:10 WBC 9.25 (4.0-11.0) K/uL RBC 4.98 (4.30-5.90) M/uL Hgb 15.0 (12.0-16.0) g/dL Hct 42.5 (36.0-46.0) % MCV 85.3 (80.0-98.0) fL MCH 30.1 (27.0-32.0) pg MCHC 35.3 (31.0-37.0) g/dL RDW Std Deviation 40.1 (28.0-62.0) fl RDW Coeff of Rodriguez 13 (11.0-15.0) % Plt Count 232 (150-400) K/uL MPV 10.50 (7.40-12.00) fL Nucleated RBC % 0.0 /100WBC Nucleated RBCs # 0 K/uL SARS-CoV-2 RNA ([facility]) NEGATIVE (NEGATIVE) Blood Type A POSITIVE Antibody Screen NEGATIVE Med Orders - Current: Current Medications Acetaminophen (Tylenol Extra Strength) 1,000 mg PO Q6H PRN PRN Reason: Fever Last Admin: 01/06/21 23:18 Dose: 1,000 mg Documented by: Acetaminophen (Tylenol Extra Strength) 500 mg PO Q4H PRN PRN Reason: Pain Benzocaine/Menthol (Dermoplast Pain Relief 20%-0.5% [place]) 78 gm TOP ASDIRECTED PRN PRN Reason: Perineal Comfort Measure Bisacodyl (Dulcolax) 10 mg RECTAL ONETIME PRN PRN Reason: Constipation Butorphanol Tartrate (Stadol) 1 mg IVPUSH Q1H PRN PRN Reason: Pain Last Admin: 01/07/21 03:46 Dose: 1 mg Documented by: Carboprost Tromethamine (Hemabate Ds) 250 mcg IM ASDIRECTED PRN PRN Reason: Post Hemorrhage Docusate Sodium (Colace) 100 mg PO BID PRN PRN Reason: Constipation Oxytocin/Sodium Chloride (Oxytocin 30 Unit/500 Ml-Ns) 30 unit in 500 mls @ 500 mls/hr IV TITRATE [facility] Tranexamic Acid 1,000 mg/ (Sodium Chloride) 110 mls @ 660 mls/hr IV ONETIME PRN PRN Reason: Bleeding Lactated Ringer's (Ringers, Lactated) 1,000 mls @ 150 mls/hr IV ASDIRECTED [facility] Last Admin: 01/07/21 05:29 Dose: 150 mls/hr Documented by: Ibuprofen (Motrin) 400 mg PO Q4H PRN PRN Reason: Pain Ibuprofen (Motrin) 800 mg PO Q6H PRN PRN Reason: Pain Lidocaine HCl (Xylocaine 1%) 50 ml INJECT ONETIME PRN PRN Reason: Laceration repair Methylergonovine Maleate (Methergine) 0.2 mg IM ASDIRECTED PRN PRN Reason: Post Hemorrhage Misoprostol (Cytotec) 200 mcg PO ONETIME PRN PRN Reason: Post Hemorrhage Nalbuphine HCl (Nubain) 10 mg IVPUSH Q1H PRN PRN Reason: Pain (severe 7-10) Sodium Chloride (Saline Flush) 10 ml FLUSH ASDIRECTED PRN PRN Reason: Keep Vein Open Sodium Chloride (Saline Flush) 2.5 ml FLUSH ASDIRECTED PRN PRN Reason: Keep Vein Open Sodium Chloride (Normal Saline) 10 ml IV ASDIRECTED PRN PRN Reason: IV Use Sterile Water (Sterile Water For Irrigation) 1,000 ml IRR ASDIRECTED PRN PRN Reason: delivery Witch Talia (Tucks) 1 pad TOP ASDIRECTED PRN PRN Reason: comfort care Discontinued Medications Fentanyl (Sublimaze) Confirm Administered Dose 200 mcg .ROUTE .STK-MED ONE Stop: 01/07/21 04:40 Ropivacaine (Naropin 0.2%) Confirm Administered Dose 100 mls @ as directed .ROUTE .STK-MED ONE Stop: 01/07/21 04:40 Misoprostol (Cytotec) 400 mcg VAG Q4H [facility] Last Admin: 01/07/21 00:44 Dose: 400 mcg Documented by: - My Orders Last 24 Hours: My Active Orders 01/06/21 22:56 Acetaminophen [Tylenol Extra Strength] 1,000 mg PO Q6H PRN 01/07/21 Breakfast Regular Diet [DIET] 01/07/21 07:23 Cooling Warming Measures [RC] ASDIRECTED May Shower [RC] ASDIRECTED Notify Provider Vital Signs [RC] ASDIRECTED Up ad Babita [RC] ASDIRECTED Vital Signs [RC] PER UNIT ROUTINE Acetaminophen [Tylenol Extra Strength] 500 mg PO Q4H PRN Benzocaine/Menthol [Dermoplast Pain Relief 20%-0.5% [place]] 78 gm TOP ASDIRECTED PRN Docusate Sodium [Colace] 100 mg PO BID PRN Ibuprofen [Motrin] 400 mg PO Q4H PRN Ibuprofen [Motrin] 800 mg PO Q6H PRN bisacodyL [Dulcolax] 10 mg RECTAL ONETIME PRN witch Talia [Tucks] 1 pad TOP ASDIRECTED PRN Assess Lochia [WOMSER] Per Unit Routine Assess Uterine Involution [WOMSER] Per Unit Routine Ice Therapy [OM.PC] Per Unit Routine Perineal Care [OM.PC] Per Unit Routine Peripheral IV Discontinue [OM.PC] Routine 01/07/21 12:00 HEMOGLOBIN/HEMATOCRIT,HH [HEME] Routine - Plan Plan:: Attended delivery--no obvious anomalies of male fetus noted. Amniotic fluid clear. Placenta and cord intact--no cord anomalies noted. Hemostasis is evident and uterus is firm. Reviewed findings with mother. Patient is currently holding fetus and responding appropriately.
[2021-01-07] MEDS ORDERED: Ibuprofen 800 MG Tab PO PRN (07:23)
[2021-01-07] MEDS ORDERED: Benzocaine/Menthol 20%-0.5% Spray 78 GM Cannister TOP PRN (07:23)
[2021-01-07] MEDS ORDERED: Ibuprofen 400 MG Tab PO PRN (07:23)
[2021-01-07] MEDS ORDERED: Acetaminophen 500 MG Tab PO PRN (07:23)
[2021-01-07] MEDS ORDERED: Bisacodyl 10 MG Supp RECTAL PRN (07:23)
[2021-01-07] MEDS ORDERED: Docusate Sodium 100 MG Cap PO PRN (07:23)
[2021-01-07] MEDS ORDERED: Witch Hazel Medicated Pads 40/Jar TOP PRN (07:23)
--- NOTE | 2021-01-07 12:58 | PCM.PNPP ---
- General Info Date of Service: 01/07/21 Subjective Update: 39 yo s/p vaginal delivery IUFD . Patient very emotional. she will like cremation and has arranged it with home Functional Status: Reports: Pain Controlled, Tolerating Diet, Ambulating, Urinating - Review of Systems General: Reports: No Symptoms HEENT: Reports: No Symptoms Pulmonary: Reports: No Symptoms Cardiovascular: Reports: No Symptoms Gastrointestinal: Reports: No Symptoms Genitourinary: Reports: No Symptoms Musculoskeletal: Reports: No Symptoms Skin: Reports: No Symptoms Neurological: Reports: No Symptoms Psychiatric: Reports: No Symptoms - General Info Date of Service: 01/07/21 - Patient Data Vital Signs - Most Recent: Last Vital Signs Temp 37.8 C 01/07/21 02:15 Pulse 86 01/07/21 02:15 Resp 16 01/07/21 02:15 BP 119/86 01/07/21 02:15 Pulse Ox Weight - Most Recent: 54.431 kg Lab Results - Last 24 Hours: Laboratory Results - last 24 hr 01/06/21 01/06/21 01/06/21 Range/Units 15:00 15:00 15:10 WBC 9.25 (4.0-11.0) K/uL RBC 4.98 (4.30-5.90) M/uL Hgb 15.0 (12.0-16.0) g/dL Hct 42.5 (36.0-46.0) % MCV 85.3 (80.0-98.0) fL MCH 30.1 (27.0-32.0) pg MCHC 35.3 (31.0-37.0) g/dL RDW Std Deviation 40.1 (28.0-62.0) fl RDW Coeff of Rodriguez 13 (11.0-15.0) % Plt Count 232 (150-400) K/uL MPV 10.50 (7.40-12.00) fL Nucleated RBC % 0.0 /100WBC Nucleated RBCs # 0 K/uL SARS-CoV-2 RNA (MARINA) NEGATIVE (NEGATIVE) Blood Type A POSITIVE Antibody Screen NEGATIVE 01/07/21 Range/Units 10:22 WBC (4.0-11.0) K/uL RBC (4.30-5.90) M/uL Hgb 13.5 (12.0-16.0) g/dL Hct 38.6 (36.0-46.0) % MCV (80.0-98.0) fL MCH (27.0-32.0) pg MCHC (31.0-37.0) g/dL RDW Std Deviation (28.0-62.0) fl RDW Coeff of Rodriguez (11.0-15.0) % Plt Count (150-400) K/uL MPV (7.40-12.00) fL Nucleated RBC % /100WBC Nucleated RBCs # K/uL SARS-CoV-2 RNA (MARINA) (NEGATIVE) Blood Type Antibody Screen Med Orders - Current: Current Medications Acetaminophen (Tylenol Extra Strength) 1,000 mg PO Q6H PRN PRN Reason: Fever Last Admin: 01/06/21 23:18 Dose: 1,000 mg Documented by: Acetaminophen (Tylenol Extra Strength) 500 mg PO Q4H PRN PRN Reason: Pain Benzocaine/Menthol (Dermoplast Pain Relief 20%-0.5% Alden) 78 gm TOP ASDIRECTED PRN PRN Reason: Perineal Comfort Measure Bisacodyl (Dulcolax) 10 mg RECTAL ONETIME PRN PRN Reason: Constipation Butorphanol Tartrate (Stadol) 1 mg IVPUSH Q1H PRN PRN Reason: Pain Last Admin: 01/07/21 03:46 Dose: 1 mg Documented by: Carboprost Tromethamine (Hemabate Ds) 250 mcg IM ASDIRECTED PRN PRN Reason: Post Hemorrhage Docusate Sodium (Colace) 100 mg PO BID PRN PRN Reason: Constipation Oxytocin/Sodium Chloride (Oxytocin 30 Unit/500 Ml-Ns) 30 unit in 500 mls @ 500 mls/hr IV TITRATE [facility] Last Admin: 01/07/21 07:03 Dose: 500 mls/hr Documented by: Tranexamic Acid 1,000 mg/ (Sodium Chloride) 110 mls @ 660 mls/hr IV ONETIME PRN PRN Reason: Bleeding Lactated Ringer's (Ringers, Lactated) 1,000 mls @ 150 mls/hr IV ASDIRECTED [facility] Last Admin: 01/07/21 05:29 Dose: 150 mls/hr Documented by: Ibuprofen (Motrin) 400 mg PO Q4H PRN PRN Reason: Pain Ibuprofen (Motrin) 800 mg PO Q6H PRN PRN Reason: Pain Lidocaine HCl (Xylocaine 1%) 50 ml INJECT ONETIME PRN PRN Reason: Laceration repair Methylergonovine Maleate (Methergine) 0.2 mg IM ASDIRECTED PRN PRN Reason: Post Hemorrhage Misoprostol (Cytotec) 200 mcg PO ONETIME PRN PRN Reason: Post Hemorrhage Nalbuphine HCl (Nubain) 10 mg IVPUSH Q1H PRN PRN Reason: Pain (severe 7-10) Sodium Chloride (Saline Flush) 10 ml FLUSH ASDIRECTED PRN PRN Reason: Keep Vein Open Sodium Chloride (Saline Flush) 2.5 ml FLUSH ASDIRECTED PRN PRN Reason: Keep Vein Open Sodium Chloride (Normal Saline) 10 ml IV ASDIRECTED PRN PRN Reason: IV Use Sterile Water (Sterile Water For Irrigation) 1,000 ml IRR ASDIRECTED PRN PRN Reason: delivery Witch Talia (Tucks) 1 pad TOP ASDIRECTED PRN PRN Reason: comfort care Discontinued Medications Fentanyl (Sublimaze) Confirm Administered Dose 200 mcg .ROUTE .STK-MED ONE Stop: 01/07/21 04:40 Ropivacaine (Naropin 0.2%) Confirm Administered Dose 100 mls @ as directed .ROUTE .STK-MED ONE Stop: 01/07/21 04:40 Misoprostol (Cytotec) 400 mcg VAG Q4H JUSTICE Last Admin: 01/07/21 00:44 Dose: 400 mcg Documented by: - Infant Interaction Support Person: Significant Other - Recovery Exam Fundal Tone: Firm Fundal Level: 3 Fingerbreadths Below Umbilicus Fundal Placement: Midline Lochia Amount: Scant Lochia Color: Rubra/Red Bladder Status: Voiding Urinary Elimination: Voided - Exam General: Alert HEENT: Pupils Equal Neck: Supple Lungs: Clear to Auscultation Cardiovascular: Regular Rate, Regular Rhythm GI/Abdominal Exam: Normal Bowel Sounds Extremities: Normal Inspection Psy/Mental Status: Alert - Problem List & Annotations (1) Intrauterine SNOMED Code(s): 598295522, [id number] Code(s): VMJ0055 - Status: Acute Current Visit: Yes - Problem List Review Problem List Initiated/Reviewed/Updated: Yes - My Orders Last 24 Hours: My Active Orders 01/06/21 14:00 Patient Status [ADT] Routine 01/06/21 15:00 RPR (SYPHILIS SERO) W/ RFLX [REF] Routine 01/06/21 15:35 May Shower [RC] ASDIRECTED Notify Provider [RC] PRN Up ad Babita [RC] ASDIRECTED Vaginal Exam [RC] PRN Vital Signs [RC] PER UNIT ROUTINE Butorphanol [Stadol] 1 mg IVPUSH Q1H PRN Carboprost Tromethamine [Hemabate DS] 250 mcg IM ASDIRECTED PRN Lidocaine 1% [Xylocaine 1%] 50 ml INJECT ONETIME PRN Methylergonovine [Methergine] 0.2 mg IM ASDIRECTED PRN Nalbuphine [Nubain] 10 mg IVPUSH Q1H PRN Sodium Chloride 0.9% [Normal Saline] 10 ml IV ASDIRECTED PRN Sodium Chloride 0.9% [Saline Flush] 10 ml FLUSH ASDIRECTED PRN Sodium Chloride 0.9% [Saline Flush] 2.5 ml FLUSH ASDIRECTED PRN Tranexamic Acid [Cyklokapron] 1,000 mg Sodium Chloride 0.9% [Normal Saline] 100 ml IV ONETIME Water For Irrigation,Sterile [Sterile Water for Irrigation] 1,000 ml IRR ASDIRECTED PRN miSOPROStoL [Cytotec] 200 mcg PO ONETIME PRN Peripheral IV Insertion Adult [OM.PC] Routine Resuscitation Status Routine 01/06/21 15:45 Oxytocin/0.9 % Sodium Chloride [Oxytocin 30 Unit/500 ML-NS] 30 unit in 500 ml IV TITRATE 01/07/21 04:30 Lactated Ringers [Ringers, Lactated] 1,000 ml IV ASDIRECTED 01/07/21 11:20 Ready for Discharge [RC] PER UNIT ROUTINE - Assessment Assessment:: 40 year old [id number] second trimester demise. Patient presented to [facility] on 01/[facility] for antepartum visit and no FHT were detected. She was scheduled for a medical IOL with cytotec. Received 2 doses of cytotec with passage of en cull fetus. Bleeding controlled, uterus firm - Plan Plan:: Patient coping poorly emotionally, she plans to get therapy to get through this and she states she has good family support Pain control as needed Discharge home today
== END 2021-01-07 12:09 | disposition home or self-care (01) ==
LOC: MW.OB 14:43
PROVIDERS: ADMIT Obstetrics & Gynecology; ATTEND Obstetrics & Gynecology
DX: O36.4XX0 Maternal care for intrauterine death, not applicable or unspecified (principal); O09.522 Supervision of elderly multigravida, second trimester; Z01.812 Encounter for preprocedural laboratory examination; Z20.822 Contact with and (suspected) exposure to COVID-19; F17.210 Nicotine dependence, cigarettes, uncomplicated; Z3A.25 25 weeks gestation of pregnancy
CPT/HCPCS: 36415; 59409; 85014; 85018; 85027; 86592; 86850; 86900; 86901; 87635; 88305; 96374; 96376; A9270; G0378; J0595; J2590; J2795; J3010; J7120; 01967; U0002

== ENCOUNTER 2021-03-11 13:37 | Emergency (ER) | payer OTHER ==
--- NOTE | 2021-03-11 15:06 | EDM.PDOC ---
ED HPI GENERAL MEDICAL PROBLEM - General Chief Complaint: General Stated Complaint: INJURY TO RIBS Time Seen by Provider: 03/11/21 14:56 Source of Information: Reports: Patient History Limitations: Reports: No Limitations - History of Present Illness INITIAL COMMENTS - FREE TEXT/NARRATIVE: HISTORY AND PHYSICAL: History of present illness: Patient is a 40-year-old female who presents with complaints of left upper flank rib pain after falling off of her porch 3 days ago. She said she fell from a standing position about 4 feet up landing on 2 by fours. She states that she g ets short of breath at times and it hurts to take a deep breath. She denies fever, she did not hit her head. She says she had developed a slight cough 2 days ago with some thin clear sputum. She has not taken any gtak-[id number] pain medications. She stated last night she developed lower abdominal pain and had increased urination today at work. Patient denies any fever, chills, headache, change in vision, syncope or near syncope. Denies any chest pain. Denies any nausea, vomiting, diarrhea, constipation or dysuria. Has not noted any blood in urine or stool. Patient has been eating and drinking appropriately. Review of systems: As per history of present illness and below otherwise all systems reviewed and negative. Past medical history: As per history of present illness and as reviewed below otherwise noncontributory. Surgical history: As per history of present illness and as reviewed below otherwise noncontributory. Social history: See social history for further information Family history: As per history of present illness and as reviewed below otherwise noncontributory. Physical exam: General: Well developed and well nourished. Alert and orientated x 3. Nontoxic i n appearance and in no acute distress. Vital signs are stable and have been reviewed by me. Nursing notes were reviewed. HEENT: Atraumatic, normocephalic, pupils equal and reactive bilaterally, negat jessica for conjunctival pallor or scleral icterus, mucous membranes moist, throat clear, neck supple, nontender, trachea midline. No drooling or trismus noted. No meningeal signs. No hot potato voice noted. Lungs: Clear to auscultation bilaterally. No wheezes, rales, or rhonchi. Chest tender left lateral. Normal work of breathing, no accessory muscles used. Heart: S1S2, regular rate and rhythm without overt murmur, gallops, or rubs. No JVD. No peripheral edema Abdomen: Soft, nondistended, tender to lower abdomen and left upper flank area. Normoactive bowel sounds. Negative for masses or costovertebral tenderness. Skin: Intact, warm, dry. No lesions or rashes noted. Hematologic: No petechiae or purpra. Mucosa appropriate color and normal nail bed color and refill. Extremities: Atraumatic, moves all extremities per self without difficulty or deficits, negative for cords or calf pain. Neurovascular unremarkable. Neuro: Awake, alert, oriented. Cranial nerves II through XII unremarkable. C erebellum unremarkable. Motor and sensory unremarkable throughout. Exam nonfocal. Psychiatric: Mood and affect are appropriate. Normal thought process. Answering questions appropriately. Notes: *This patient was seen and evaluated during the 2019 SARS-CoV-2 novel coronavirus pandemic period. Community viral transmission is ongoing at time of this encounter and the emergency department is operating under pandemic response procedures. Examination and discussion the patient is agreeable to a chest x-ray and urinalysis. The UA is negative. The chest x-ray IMPRESSION: Unremarkable chest. Discussed the results with the patient and that she has a contusion which requires pain control to allow healing. The patient is agreeable for discharge and home use of Motrin, ice or heat as needed for pain relief. I have talked with the patient about today's findings, in addition to providing specific details for plan of care. Reassessment at the time of disposition demonstrates that the patient is in no acute distress. The patient is stable for discharge, counseling was provided and we discussed in great detail signs and symptoms that would prompt them to return to the Emergency Department. Medication, follow up and supportive care measures were reviewed and discussed. Voices understanding and is agreeable to plan of care. Denies any further questions or concerns at this time. Diagnostics: CXR, UA Impression: Contusion Plan: 1. You were evaluated today on an emergent basis. Your planes of left side pain and lower abdominal pain were evaluated yesterday chest x-ray and a UA. They both were found to be negative. Your soft tissue contusion can be painful so use Motrin or Tylenol for pain. You can use heat or cold whichever 1 provides more relief. Feel free to return to the emergency department if you have any other issues. 2. You can alternate Tylenol and ibuprofen as needed for pain and fever management. 3. We encourage you to follow up with your primary care provider and/or recommended specialist in the next few days for re-evaluation and further care/management. 4. If your symptoms should worsen, new symptoms develop or any of the signs and symptoms we discussed should arise please return to the emergency room or call 911 (if needed). Definitive disposition and diagnosis as appropriate pending reevaluation and review of above. - Related Data Allergies Allergy/AdvReac Type Severity Reaction Status Date / Time No Known Allergies Allergy Verified 03/11/21 15:10 Home Meds: Home Meds . [No Known Home Meds] 03/05/18 [History] Past Medical History - Past Health History Medical/Surgical History: Denies Medical/Surgical History HEENT History: Reports: None Cardiovascular History: Reports: Hypertension, Other (See Below) Other Cardiovascular History: patient denies taking her meds like prescribed. Respiratory History: Reports: None Gastrointestinal History: Reports: None Genitourinary History: Reports: None STATE PATROL OFFICER History: Reports: Other STATE PATROL OFFICER History: Current Demise Musculoskeletal History: Reports: Other (See Below) Neurological History: Reports: None Psychiatric History: Reports: None Endocrine/Metabolic History: Reports: None Hematologic History: Reports: None Immunologic History: Reports: None Oncologic (Cancer) History: Reports: None Dermatologic History: Reports: Other (See Below) Other Dermatologic History: neurofibromatosis type 1 - Infectious Disease History Infectious Disease History: Reports: Chicken Pox, Hepatitis C, Human Papilloma Virus (HPV) - Past Surgical History Head Surgeries/Procedures: Reports: None HEENT Surgical History: Reports: None Cardiovascular Surgical History: Reports: None Respiratory Surgical History: Reports: None GI Surgical History: Reports: None Female Surgical History: Reports: None Endocrine Surgical History: Reports: None Neurological Surgical History: Reports: None Musculoskeletal Surgical History: Reports: Other (See Below) Other Musculoskeletal Surgeries/Procedures:: surgery on tip of left middle finger Oncologic Surgical History: Reports: None Dermatological Surgical History: Reports: Skin Graft Social & Family History - Family History Family Medical History: No Pertinent Family History HEENT: Reports: None Cardiac: Reports: Hypertension Respiratory: Reports: COPD GI: Reports: None : Reports: None OBGYN: Reports: Musculoskeletal: Reports: Fibromyalgia Neurological: Reports: None Psychiatric: Reports: None Endocrine/Metabolic: Reports: None Hematologic: Reports: None Dermatologic: Reports: Other (See Below) Other Dermatologic Family History: neuro fibromitosis Oncologic: Reports: Other (See Below) Other Oncologic Family History: adrenal - Caffeine Use Caffeine Use: Reports: Energy Drinks, Soda ED ROS GENERAL - Review of Systems Review Of Systems: Comprehensive ROS is negative, except as noted in HPI. ED EXAM, GENERAL - Physical Exam Exam: See Below (See dictation) Course - Vital Signs Last Recorded V/S: Last Vital Signs Temp 97.8 F 03/11/21 15:07 Pulse 93 03/11/21 16:29 Resp 14 03/11/21 16:29 BP 130/79 03/11/21 16:29 Pulse Ox 96 03/11/21 16:29 - Orders/Labs/Meds Labs: Laboratory Tests 03/11/21 Range/Units 15:15 Urine Color DARK YELLOW Urine Appearance CLEAR Urine pH 6.0 (5.0-8.0) Ur Specific [place] 1.025 (1.001-1.035) Urine Protein 30 H (NEGATIVE) mg/dL Urine Glucose (UA) NEGATIVE (NEGATIVE) mg/dL Urine Ketones NEGATIVE (NEGATIVE) mg/dL Urine Occult Blood NEGATIVE (NEGATIVE) Urine Nitrite NEGATIVE (NEGATIVE) Urine Bilirubin NEGATIVE (NEGATIVE) Urine Urobilinogen 0.2 (<2.0) EU/dL Ur Leukocyte Esterase NEGATIVE (NEGATIVE) Urine RBC 0-2 (0-2/HPF) Urine WBC 2-4 (0-5/HPF) Ur Epithelial Cells RARE (NONE-FEW) Amorphous Sediment RARE (NEGATIVE) Urine Bacteria FEW (NEGATIVE) Urine Mucus RARE (NONE-MOD) Departure - Departure Time of Disposition: 16:16 Disposition: Home, Self-Care 01 Condition: Good Clinical Impression: Contusion Qualifiers: Encounter type: initial encounter Contusion area: thoracic wall Front or back of thoracic wall: front Thoracic wall location detail: left Qualified Code(s): S20.212A - Contusion of left front wall of thorax, initial encounter - Discharge Information *PRESCRIPTION DRUG MONITORING PROGRAM REVIEWED*: Not Applicable *COPY OF PRESCRIPTION DRUG MONITORING REPORT IN PATIENT AKILAH: Not Applicable Instructions: Contusion, [id number] Referrals: PCP,None [Primary Care Provider] - Forms: ED Department Discharge Additional Instructions: The following information is given to patients seen in the emergency department who are being discharged to home. This information is to outline your options for follow-up care. We provide all patients seen in our emergency department with a follow-up referral. The need for follow-up, as well as the timing and circumstances, are variable depending upon the specifics of your emergency department visit. If you don't have a primary care physician on staff, we will provide you with a referral. We always advise you to contact your personal physician following an emergency department visit to inform them of the circumstance of the visit and for follow-up with them and/or the need for any referrals to a consulting specialist. The emergency department will also refer you to a specialist when appropriate. This referral assures that you have the opportunity for follow-up care with a specialist. All of these measure are taken in an effort to provide you with optimal care, which includes your follow-up. Under all circumstances we always encourage you to contact your private physician who remains a resource for coordinating your care. When calling for follow-up care, please make the office aware that this follow-up is from your recent emergency room visit. If for any reason you are refused follow-up, please contact the [facility] Emergency Department at and asked to speak to the emergency department charge nurse. [facility] - Primary [facility] [address] [place] [id number] [id number] Plan: 1. You were evaluated today on an emergent basis. Your planes of left side pain and lower abdominal pain were evaluated yesterday chest x-ray and a UA. They both were found to be negative. Your soft tissue contusion can be painful so use Motrin or Tylenol for pain. You can use heat or cold whichever 1 provides more relief. Feel free to return to the emergency department if you have any ot her issues. 2. You can alternate Tylenol and ibuprofen as needed for pain and fever management. 3. We encourage you to follow up with your primary care provider and/or recommended specialist in the next few days for re-evaluation and further care/management. 4. If your symptoms should worsen, new symptoms develop or any of the signs and symptoms we discussed should arise please return to the emergency room or call 911 (if needed). Sepsis Event Note (ED) - Focused Exam Vital Signs: Vital Signs Temp Pulse Resp BP Pulse Ox 03/11/21 16:29 93 14 130/79 96 03/11/21 15:07 97.8 F 18 166/109 H 92 L
--- NOTE | 2021-03-11 16:06 | CR ---
INDICATION: left fib pain post fall 3 days ago TECHNIQUE: Chest 2 views. COMPARISON: None. FINDINGS: Cardiovascular and mediastinum: Heart size and vasculature are normal in caliber and appearance. Mediastinum is within normal limits. Lungs and pleural spaces: Lungs are clear. No sign of infiltrate or mass. No sign of pleural effusion. No pneumothorax. Bones and soft tissues: No significant findings. IMPRESSION: Unremarkable chest. Dictated by: Parviz Gonzalez MD @ 03/11/2021 16:05:40 (Electronically Signed)
== END 2021-03-11 16:29 | disposition home or self-care (01) ==
LOC: MW.ED 13:37
DX: S20.212A Contusion of left front wall of thorax, initial encounter (principal); I10 Essential (primary) hypertension; W13.9XXA Fall from, out of or through building, not otherwise specified, initial encounter
CPT/HCPCS: 71046; 71046-26; 81001; 99283-25

== ENCOUNTER 2022-03-12 11:02 | Emergency (ER) | payer OTHER ==
[2022-03-12] MEDS ORDERED: Sodium Chloride 0.9% 2.5 ML Syringe FLUSH PRN (11:31)
[2022-03-12] MEDS ORDERED: Sodium Chloride 0.9% 10 ML Syringe FLUSH PRN (11:31)
[2022-03-12] MEDS ORDERED: Morphine 4 MG/ML VIAL IVPUSH ONE (11:44)
[2022-03-12] MEDS ORDERED: Ondansetron 4 MG/2 ML SDV IVPUSH ONE (11:44)
[2022-03-12] MEDS ORDERED: Sodium Chloride 0.9% 1,000 ML IV ONE (11:44)
[2022-03-12 12:15] LABS: BLOOD UREA NITROGEN,BUN 11 mg/dL (7.0-18.0); CARBON DIOXIDE,CO2 22.1 mmol/L (21.0-32.0); CHLORIDE,CL 105 mmol/L (98-107); GLUCOSE RANDOM 104 mg/dL (74-106); LIPASE 51 U/L (73-393); POTASSIUM,K 3.7 mmol/L (3.5-5.1); SODIUM,NA 140 mmol/L (136-145)
[2022-03-12] MEDS ORDERED: Iopamidol 755 MG/ML 500 ML Multipack Bottle IVPUSH ONE (16:22)
== END 2022-03-12 14:08 | disposition home or self-care (01) ==
LOC: MW.ED 11:02
DX: R10.13 Epigastric pain (principal); R10.33 Periumbilical pain; R19.7 Diarrhea, unspecified; I10 Essential (primary) hypertension; Z72.0 Tobacco use
CPT/HCPCS: 36415; 74177; 80053; 83690; 84703; 85025; 96374; 96375; 99284; J2270; J2405; J3490; J7030; Q9967

== ENCOUNTER 2022-06-14 21:22 | Emergency (ER) | payer OTHER ==
[2022-06-14] MEDS ORDERED: Sodium Chloride 0.9% 2.5 ML Syringe FLUSH PRN (21:46)
[2022-06-14] MEDS ORDERED: diphenhydrAMINE 50 MG/ML SDV IVPUSH ONE (21:46)
[2022-06-14] MEDS ORDERED: Sodium Chloride 0.9% 1,000 ML IV ONE (21:46)
[2022-06-14] MEDS ORDERED: Ketorolac 30 MG/ML SDV IVPUSH ONE (21:46)
[2022-06-14] MEDS ORDERED: Sodium Chloride 0.9% 10 ML Syringe FLUSH PRN (21:46)
[2022-06-14 22:32] LABS: CARBON DIOXIDE,CO2 22.5 mmol/L (21.0-32.0); POTASSIUM,K 3.1 mmol/L (3.5-5.1)
[2022-06-15] MEDS ORDERED: Ibuprofen 600 MG Tab PO ONE (00:30)
== END 2022-06-15 00:39 | disposition home or self-care (01) ==
LOC: MW.ED 21:22
DX: S09.90XA Unspecified injury of head, initial encounter (principal); G93.0 Cerebral cysts; I10 Essential (primary) hypertension; Z20.822 Contact with and (suspected) exposure to COVID-19
CPT/HCPCS: 36415; 70450; 80053; 84703; 85025; 87635; 96361; 96374; 96375; 99284; A9270; J1200; J1885; J3490; J7030; U0002

== ENCOUNTER 2022-10-13 10:11 | Emergency (ER) | payer OTHER ==
[2022-10-13] MEDS ORDERED: Sodium Chloride 0.9% 10 ML Syringe FLUSH PRN (10:47)
[2022-10-13] MEDS ORDERED: Sodium Chloride 0.9% 2.5 ML Syringe FLUSH PRN (10:47)
[2022-10-13] MEDS ORDERED: Sodium Chloride 0.9% 1,000 ML IV ONE (10:48)
[2022-10-13] MEDS ORDERED: Alum Hydro/Mag Hydro/Simeth XS 15 ML, Lidocaine 2% 5 ML PO ONE ×2 (10:49)
[2022-10-13] MEDS ORDERED: Ondansetron 4 MG/2 ML SDV IVPUSH ONE (11:53)
[2022-10-13] MEDS ORDERED: Ketorolac 30 MG/ML SDV IVPUSH ONE (11:53)
[2022-10-13] MEDS ORDERED: Famotidine 20 MG/2 ML SDV IVPUSH ONE (11:54)
[2022-10-13 12:07] LABS: CORONAVIRUS COVID-19 NAA NEGATIVE (NEGATIVE); INFLUENZA A NAA NEGATIVE (NEGATIVE); INFLUENZA B NAA NEGATIVE (NEGATIVE)
[2022-10-13 12:10] LABS: CARBON DIOXIDE,CO2 24.5 mmol/L (21.0-32.0); POTASSIUM,K 3.6 mmol/L (3.5-5.1)
[2022-10-13] MEDS ORDERED: Iopamidol 755 MG/ML 500 ML Multipack Bottle IVPUSH ONE (12:33)
== END 2022-10-13 14:17 | disposition home or self-care (01) ==
LOC: MW.ED 10:11
DX: K29.00 Acute gastritis without bleeding (principal); I10 Essential (primary) hypertension; Z79.899 Other long term (current) drug therapy; Z20.822 Contact with and (suspected) exposure to COVID-19
CPT/HCPCS: 0240U; 36415; 74177; 80053; 81001; 81025; 83690; 83735; 85025; 96361; 96374; 96375; 99284; A9270; J1885; J2405; J3490; J7030; Q9967

== ENCOUNTER 2023-12-11 10:11 | Emergency (ER) | payer SELFPAY ==
[2023-12-11] MEDS ORDERED: Ketorolac 30 MG/ML SDV IVPUSH ONE (10:16)
[2023-12-11] MEDS ORDERED: Sodium Chloride 0.9% 1,000 ML IV ONE (10:16)
[2023-12-11 10:44] LABS: BASOPHILS ABSOLUTE AUTO 0.06 K/uL (0.00-0.20); BASOPHILS PERCENT AUTO 0.6 % (0.0-1.0); EOSINOPHILS ABSOLUTE AUTO 0.01 K/uL (0.00-0.45); EOSINOPHILS PERCENT AUTO 0.1 % (0.0-6.0); HEMATOCRIT 44.1 % (37.0-47.0); HEMOGLOBIN 15.2 g/dL (12.0-16.0); IMMATURE GRAN ABSOLUTE AUTO 0.02 K/uL (0.00-0.05); IMMATURE GRAN PERCENT AUTO 0.2 % (0.0-0.4); LYMPHOCYTES ABSOLUTE AUTO 1.46 K/uL (1.00-4.80); MEAN CORPUSCULAR HEMOGLOBIN 28.4 pg (28.0-32.0); MEAN CORPUSCULAR HGB CONC 34.5 g/dL (32.0-36.0); MEAN CORPUSCULAR VOLUME 82.4 fL (83.0-99.0); MEAN PLATELET VOLUME 9.3 fL (9.4-12.3); MONOCYTES ABSOLUTE AUTO 0.47 K/uL (0.00-0.80); MONOCYTES PERCENT AUTO 4.8 % (0.0-8.0); NEUTROPHILS ABSOLUTE AUTO 7.74 K/uL (1.80-7.70); NEUTROPHILS PERCENT AUTO 79.3 % (41.0-71.0); PLATELET COUNT,PLT 312 K/uL (150-400); RED BLOOD CELL COUNT 5.35 M/uL (4.10-5.30); WHITE BLOOD CELL COUNT,WBC 9.76 K/uL (3.9-11.3)
[2023-12-11 11:19] LABS: A/G RATIO 0.8 (0.9-1.6); ALBUMIN 3.7 g/dL (3.4-5.0); BILIRUBIN TOTAL 0.7 mg/dL (0.2-1.0); CALCIUM 9.1 mg/dL (8.5-10.1); CARBON DIOXIDE,CO2 20.3 mmol/L (21.0-32.0); CREATININE 0.9 mg/dL (0.6-1.0); EST CRCL DRUG DOSING (CG) 59.09 mL/min; POTASSIUM,K 3.8 mmol/L (3.5-5.1); PROTEIN TOTAL,TP 8.4 g/dL (6.4-8.2)
[2023-12-11 11:22] LABS: CORONAVIRUS COVID-19 NAA NEGATIVE (NEGATIVE); INFLUENZA A NAA NEGATIVE (NEGATIVE); INFLUENZA B NAA NEGATIVE (NEGATIVE); RESPIRATORY SYNCYTIAL VIR NAA NEGATIVE (NEGATIVE)
== END 2023-12-11 12:08 | disposition home or self-care (01) ==
LOC: MW.ED 10:11
DX: R07.9 Chest pain, unspecified (principal); R91.1 Solitary pulmonary nodule; I10 Essential (primary) hypertension
CPT/HCPCS: 0241U; 36415; 71045; 80053; 83690; 84443; 84484; 85025; 93005; 96361; 96374; 99285; J1885; J7030; 93010; 99284

== ENCOUNTER 2024-03-02 12:12 | Emergency (ER) | payer SELFPAY | END 2024-03-02 12:57 | LOC: MW.ED 12:12 | DX: Z02.89 Encounter for other administrative examinations (principal); I10 Essential (primary) hypertension; J44.9 Chronic obstructive pulmonary disease, unspecified; F17.210 Nicotine dependence, cigarettes, uncomplicated | CPT/HCPCS: 99283 ==

== ENCOUNTER 2024-10-28 21:00 | Emergency (ER) | payer MEDICAID ==
[2024-10-28] MEDS: Ondansetron 4 MG/2 ML SDV IVPUSH ONE (22:22)
[2024-10-28] MEDS: Sodium Chloride 0.9% 1,000 ML IV ONE (22:22)
[2024-10-28 22:31] LABS: BASOPHILS ABSOLUTE AUTO 0.01 K/uL (0.00-0.20); BASOPHILS PERCENT AUTO 0.1 % (0.0-1.0); HEMATOCRIT 40.5 % (37.0-47.0); HEMOGLOBIN 13.8 g/dL (12.0-16.0); IMMATURE GRAN ABSOLUTE AUTO 0.04 K/uL (0.00-0.05); IMMATURE GRAN PERCENT AUTO 0.3 % (0.0-0.4); LYMPHOCYTES ABSOLUTE AUTO 1.71 K/uL (1.00-4.80); LYMPHOCYTES PERCENT AUTO 14.9 % (24.0-44.0); MEAN CORPUSCULAR HGB CONC 34.1 g/dL (32.0-36.0); MEAN CORPUSCULAR VOLUME 79.3 fL (83.0-99.0); MEAN PLATELET VOLUME 8.8 fL (9.4-12.3); MONOCYTES ABSOLUTE AUTO 0.53 K/uL (0.00-0.80); MONOCYTES PERCENT AUTO 4.6 % (0.0-8.0); NEUTROPHILS ABSOLUTE AUTO 9.19 K/uL (1.80-7.70); NEUTROPHILS PERCENT AUTO 80.1 % (41.0-71.0); PLATELET COUNT,PLT 273 K/uL (150-400); RED BLOOD CELL COUNT 5.11 M/uL (4.10-5.30); WHITE BLOOD CELL COUNT,WBC 11.48 K/uL (3.9-11.3)
[2024-10-28 22:48] LABS: CALCIUM 9.2 mg/dL (8.5-10.1); CARBON DIOXIDE,CO2 27.8 mmol/L (21.0-32.0); CREATININE 0.8 mg/dL (0.6-1.0); EST CRCL DRUG DOSING (CG) 65.8 mL/min; POTASSIUM,K 3.4 mmol/L (3.5-5.1)
[2024-10-29 00:18] LABS: AMPHETAMINES SCREEN, URINE NEGATIVE (CUTOFF=500); BARBITURATE SCREEN,URINE NEGATIVE (CUTOFF=200); BENZODIAZEPINES SCREEN,URINE NEGATIVE (CUTOFF=150); BUPRENORPHINE SCREEN,URINE PRESUMPTIVE POSITIVE (CUTOFF=10); METHADONE SCREEN, URINE NEGATIVE (CUTOFF=200); METHAMPHETAMINES SCREEN, URINE NEGATIVE (CUTOFF=500); OXYCODONE SCREEN,URINE PRESUMPTIVE POSITIVE (CUT0FF=100); PCP SCREEN,URINE NEGATIVE (CUTOFF=25); THC SCREEN,URINE 20 NG/ML NEGATIVE (CUTOFF=50)
[2024-10-29] MEDS: Zolpidem 5 MG Tab PO PRN (00:21)
[2024-10-29] MEDS: Prochlorperazine 10 MG/2 ML SDV IVPUSH ONE (00:22)
[2024-10-29] MEDS: Buprenorphine/Naloxone 8-2 MG Tab.SL SL ONE (01:24)
== END 2024-10-29 06:31 | disposition home or self-care (01) ==
LOC: MW.ED 21:00
DX: F11.23 Opioid dependence with withdrawal (principal); I10 Essential (primary) hypertension; J44.9 Chronic obstructive pulmonary disease, unspecified; F17.200 Nicotine dependence, unspecified, uncomplicated; Z79.899 Other long term (current) drug therapy
CPT/HCPCS: 36415; 80048; 80305; 85025; 87428; 96361; 96374; 96375; 99283; A9270; J0574; J0780; J2405; J7030; 99284